=== PATIENT | male | born 1970 | race Two or more races ===

== ENCOUNTER 2024-10-22 11:32 | Inpatient (IN) | payer MEDICAID, SELFPAY ==
[2024-10-22] VITALS (10 sets, daily range): BP systolic 107–132; BP diastolic 69–94; PULSE 8–95; RESP 16–21; TEMP 36.6–37.6; O2SAT 95–100; BMI 25.5; BMI 25.2
--- NOTE | 2024-10-22 11:38 | EKG_ITS ---
[facility] Test Date: 2024-10-22 Pat Name: BRIAN SINGER Department: Room: - Gender: Male [employer]: : 1970 Requested By: Anushka Farias ([facility]) [place] Order Number: [id number] Reading MD: Anushka Farias ([facility]) Yeison Measurements Intervals [place] Rate: 91 P: 53 GA: 146 QRS: 43 QRSD: 82 T: 38 QT: 359 QTc: 442 Interpretive Statements SINUS RHYTHM NONSPECIFIC T-WAVE ABNORMALITY No previous ECG available for comparison /store/S0/[id number]/ecg/[id number].pdf
--- NOTE | 2024-10-22 11:47 | XR_ITS ---
Examination: CT brain head without contrast. 2-D sagittal coronal reconstructions Date and time of exam:October 22, 2024 1156 hours INDICATIONS: Syncopal episode with dizziness onset today CTDI: vol (mGy):46.9 DLP: (mGycm):964 Technique: Multiple CT axial sections of the brain have been obtained, 5 mm slice thickness. Contrast has not been administered. 2-D sagittal, coronal reconstructions have been obtained Low dose protocols were performed. One or more of the following dose reduction techniques were used; automated exposure control, adjustment of the mA and/or KV according to patient size, use of iterative reconstruction technique. Findings: No significant ventricular enlargement. Intra-axial or extra-axial hemorrhage density is not seen. No mass effect or midline shift Basal cisterns are not remarkable. Fourth ventricle is midline. Cranial vault intact. Impression: Negative for acute hemorrhage, mass effect or midline shift If symptoms persist, consider brain MRI follow-up
--- NOTE | 2024-10-22 11:47 | XR_ITS ---
Examination: PA chest single view TECHNIQUE: Upright PA chest single view Exam date and time: October 22, 2024 1159 hours INDICATIONS: Chest pain syncope beginning one day ago. FINDINGS: Normal heart size CABG No pneumonia or pulmonary edema. The osseous structures are intact IMPRESSION: No active disease
--- NOTE | 2024-10-22 11:48 | PD.EDRME ---
Rapid Medical Screening Exam RME Arrival date/time: 10/22/24 11:32 53-year-old male presents the emergency department with complaints of shortness of breath chest pain and dizziness. I have greeted and performed a focused initial assessment of this patient. Initial appropriate labs ordered at this time. A comprehensive ED assessment and evaluation of the patient and analysis of all test and completion of medical decision making process will be conducted by additional ED provider. Chief Complaint: Dizziness Time Seen by Provider: 10/22/24 11:47
[2024-10-22 12:31] LABS: Basophils # (Auto) 0.1 Thou/mm3 (0.0-0.2); Basophils % (Auto) 1 % (0-2.5); Eosinophils % (Auto) 0 % (0-10); Hematocrit 22.2 % (41.0-53.0); Immature Granulocytes % (Auto) 1 % (0-0); Immature Granulocytes Auto 0.07 Thou/mm3 (0.00-0.00); Lymphocytes # (Auto) 1.4 Thou/mm3 (1.0-4.8); Lymphocytes % (Auto) 12 % (10-50); Mean Corpuscular HGB Conc 33.3 g/dl (31.0-37.0); Mean Corpuscular Hemoglobin 29.5 pg (25.0-35.0); Mean Corpuscular Volume 88 fL (80-100); Monocytes # (Auto) 0.5 Thou/mm3 (0.0-0.8); Monocytes % (Auto) 4 % (0-12); Neutrophils # (Auto) 9.8 Thou/mm3 (1.8-7.7); Neutrophils % (Auto) 83 % (37-80); Nucleated Red Blood Cell % 0 /100 WBC (0); Platelet Count 252 Thou/mm3 (140-440); RDW Standard Deviation 54.9 fL (35.1-43.9); Red Blood Count 2.51 Miln/mm3 (4.50-5.90); White Blood Count 11.9 Thou/mm3 (3.8-10.6)
[2024-10-22 12:44] LABS: INR 1.1 (0.9-1.3); Prothrombin Time 11.8 Seconds (9.0-12.2)
[2024-10-22 12:47] LABS: B-Type Natriuretic Peptide < 20 pg/mL (0-100)
[2024-10-22 12:49] LABS: Alanine Aminotransferase 22 U/L (10-49); Albumin, Serum 4.1 gm/dL (3.5-5.0); Albumin/Globulin Ratio 2.1 (1.2-2.2); Alkaline Phosphatase 49 U/L (46-116); Anion Gap 8 (7-16); Aspartate Amino Transferase 18 U/L (0-34); BUN/Creatinine Ratio 41 Ratio (12-20); Bilirubin,Total 0.5 mg/dL (0.3-1.2); Blood Urea Nitrogen 37 mg/dL (9-23); Calcium 8.6 mg/dL (8.3-10.6); Calcium (Corrected) 8.6 mg/dL (8.5-10.1); Carbon Dioxide 19.9 mMol/L (20.0-31.0); Chloride 105 mMol/L (98-107); Creatinine (Component) 0.9 mg/dL (0.6-1.3); Estimated Creatinine Clearance 90.8 mL/min (>60); Glucose 190 mg/dL (74-106); Lipase 36 U/L (12-53); Magnesium 1.8 mg/dL (1.6-2.6); Osmolality,Calculated 280 (275-295); Potassium 4.4 mMol/L (3.4-5.1); Sodium 133 mMol/L (136-145); Total Protein 6.1 gm/dL (5.7-8.2); Troponin I < 0.020 ng/mL (0.0-0.045); eGFR > 60 See Note
[2024-10-22 12:50] LABS: Hemoglobin 7.4 g/dL (13.5-16.0)
--- NOTE | 2024-10-22 15:21 | EDNOTE_ITS ---
<Statement entered by Liv Perdomo MD - 10/28/24 17:56> As co-signing physician, I was present and available for consult prn. I concur with the plan and care as documented by the midlevel provider. ED Dizzyness RME/HPI General Chief Complaint: Dizziness Stated Complaint: Dizziness X 3 days, nausea Time Seen by Provider: 10/22/24 11:47 Arrival date/time: 10/22/24 11:32 RME / HPI RME / HPI Narrative: 53-year-old male patient with significant history of hypertension diabetes mellitus, CAD, status post CABG, on aspirin and Plavix, came in for evaluation regarding dizziness. Patient's been having dizziness for the last 3 days, and noticed black tarry stool for the last 3 days. Patient denies any abdominal pain. Denies any vomiting blood denies any other complaints no medication was taken prior to arrival. Related Data Allergies Allergy/AdvReac Type Severity Reaction Status Date / Time No Known Allergies Allergy Verified 10/22/24 11:37 Review of Systems Review of Systems Narrative Review of Systems: Review of system reviewed and within normal limits except mentioned in HPI ED Exam Narrative Physical exam: VITAL SIGNS: Reviewed. GENERAL APPEARANCE: Alert and interactive, follows commands, no acute distress, HEAD AND FACE: Non-traumatic. ENT: PERRL, pale conjunctiva, eyelid no trauma, Mucous membrane moist. NECK: Supple, nontender, no nuchal rigidity. CHEST: No tenderness, no crepitus, no paradoxical movement, no retractions. LUNGS: Clear, well ventilated, symmetric, no rales, no wheezing, no ronchi, no stridor, good breath sounds bilaterally. HEART: Regular rate, regular rhythm, no murmur, no gallops. ABDOMEN: Soft, positive bowel sounds, nondistended, no guarding, nontender, no rebound, no masses, RECTAL: Deferred. GENITAL: Deferred. NEUROLOGICAL: Gross motor function intact sensory function intact, Appropriate for age. MUSCULOSKELETAL: low back nontender, full range of motion. EXTREMITIES: Nontender, full range of motion. SKIN: Color pale, dry, no rash, no lacerations, no abrasions, no contusions. LYMPHATICS: Deferred. Course Quality Measures none Orders Category Date Time Status COVID-19 Screening Questionnaire NOW Care 10/22/24 15:27 Active Personal Vehicle Advisor STAT Care 10/22/24 11:47 Active Continuous Pulse Oximetry ONCE Care 10/22/24 11:47 Active Decision to Admit X1 Care 10/22/24 15:27 Completed EKG (ED ONLY) *Do not use* NOW Care 10/22/24 11:38 Completed Insert IV STAT Care 10/22/24 11:47 Active Occult Blood,Stool (Nursing) ONCE Care 10/22/24 15:17 Active Transfuse,blood/blood products ONCE Care 10/22/24 15:17 Active Consult to Gastroenterology Stat Cons 10/22/24 15:[address] head/brain wo con Stat Exams 10/22/24 11:47 Completed EKG (ED Only) Stat Exams 10/22/24 11:38 Draft XR chest 1V portable Stat Exams 10/22/24 11:47 Completed B-Type Natriuretic Peptide Stat Lab 10/22/24 12:11 Completed CBC Stat Lab 10/22/24 12:11 Completed Comprehensive Metabolic Panel Stat Lab 10/22/24 12:11 Completed Lipase Stat Lab 10/22/24 12:11 Completed Magnesium Stat Lab 10/22/24 12:11 Completed Prothrombin Time with INR Stat Lab 10/22/24 12:11 Completed Troponin I Stat Lab 10/22/24 12:11 Completed Type and Screen Stat Lab 10/22/24 15:46 Results prbc [Red Blood Cells] Stat Lab 10/22/24 15:46 Results Pantoprazole Inj [Protonix Inj] Med 10/22/24 15:17 Discontinued 80 mg IV X1 ONE Vital Signs Vital signs: Vital Signs Temperature 98.0 F 10/22/24 11:51 Pulse Rate 95 10/22/24 11:51 Respiratory Rate 19 10/22/24 11:51 Blood Pressure 107/69 10/22/24 11:51 Pulse Oximetry (%) 95 10/22/24 11:51 Oxygen Delivery Method Room Air 10/22/24 11:51 Dizziness MDM Narrative MDM Narrative:: 53-year-old male patient with significant history of hypertension diabetes mellitus, CAD, status post CABG, on aspirin and Plavix, came in for evaluation regarding dizziness. Patient's been having dizziness for the last 3 days, and noticed black tarry stool for the last 3 days. Patient denies any abdominal pain. Denies any vomiting blood denies any other complaints no medication was taken prior to arrival. Rectal exam was done by me with the around all the time and with consent, I noticed black tarry stool on the examining finger, strongly positive for occult blood Patient's hemoglobin was noted to be 7.4, 2 units of packed RBC was ordered, patient was started on Protonix IV. Patient data External records reviewed:: None Clinical information provided by:: family Social determinants that could affect healthcare access:: none Patient has the following chronic illnesses:: Hypertension diabetes mellitus, status post open heart surgery, CAD, How is presenting disease/condition affected by chronic disease/condition?: exacerbated by Evaluation data The following diagnostics were reviewed and interpreted by me:: lab results, radiology exam(s) and EKG tracing(s) Lab and/or radiology exams considered but not ordered:: None Interpretation Summary: EKG as interpreted by me shows sinus rhythm, ventricular rate of 91 bpm, no ST segment elevation depression noted. Patient's hemoglobin today was noted to be 7.4, platelets is normal. CT scan of the head came back unremarkable. Chest x- ray came back unremarkable. Medications / Prescriptions Medications or Prescriptions considered but not ordered:: None Medication administrations:: Medication Administration History Acetaminophen (Acetaminophen 325 Mg Tablet) 650 mg PO Q6H PRN PRN Reason: Pain RATED 1-3,Fever >100.4 Stop: 11/21/24 16:20 Hydrocodone Bitart/Acetaminophen (Hydrocodone/Apap 5/325 Tablet) 1 tab PO Q4HR PRN PRN Reason: PAIN SCALE 4-10(Mod-Sev Stop: 10/27/24 16:20 Atorvastatin Calcium (Atorvastatin Calcium 20 Mg Tablet) 40 mg PO HS MIKAELA Stop: 11/21/24 20:59 Dextrose (Dextrose 50%-Water Inj 50 Ml Syringe) 25 ml IV Q15MIN PRN PRN Reason: BG 50-70 responsive npo pt Stop: 11/21/24 16:20 Dextrose (Dextrose 50%-Water Inj 50 Ml Syringe) 50 ml IV Q15MIN PRN PRN Reason: BG <50 OR BG <70 & pt unresponsive Stop: 11/21/24 16:20 Glucagon (Glucagon Inj 1 Mg Vial) 1 mg IM Q15MIN PRN PRN Reason: BG <70, and no IV access Pantoprazole Sodium (Protonix/Ns 80mg Iv Premix) 80 mg in 100 mls @ 10 mls/hr IV Q10H MIKAELA Stop: 10/25/24 14:25 Last Admin: 10/22/24 17:03 Dose: 10 mls/hr Documented By: JADE Insulin Human Lispro (Insulin Lispro (Admelog) 1 Unit/0.01 Ml Unit) 0 unit SC [facility]; Protocol Stop: 11/21/24 16:59 Last Admin: 10/22/24 17:07 Dose: Not Given Documented By: JADE Non-Admin Reason: Patient Refused Ondansetron HCl (Ondansetron Inj 2 Mg/Ml Inj 2 Ml) 4 mg IV Q6H PRN; Protocol PRN Reason: NAUSEA OR VOMITING Stop: 11/21/24 16:20 Discontinued Medications Carvedilol (Carvedilol 3.125 Mg Tablet) 6.25 mg PO BIDWM [facility] Stop: 11/21/24 17:29 Pantoprazole Sodium (Pantoprazole Inj 40 Mg Vial) 80 mg IV X1 ONE Stop: 10/22/24 15:18 Last Admin: 10/22/24 15:52 Dose: 80 mg Documented By: JADE Protonix IV, 2 units packed RBC Consultations Consultation(s) initiated? (list below): Yes Consultation #1 (Physician, Specialty, Details): Spoke with Dr. Casas, GI on-call, and thank you Dr. Casas Diagnosis Dizziness Differential Diagnosis: other (Upper GI bleed, anemia, dizziness) Most likely diagnosis given after review of the tests above:: Upper GI bleed Anemia Admission Indicated Admission indicated?: indicated Explain why admission is indicated or not indicated:: Patient is to be admitted for further management Admission Request Was there a request for admission?: Yes Admission Attestation Admission request attestation: Discussed case with [Dr Rice] from Hospitalist service regarding admission. Discussed patients ED course, exam findings, labs, and radiology results. The Hospitalist [agrees] to accept the patient for admission. Disposition Plan Disposition Plan: Admit Discharge Plan Plan Patient Disposition: Admit Acute Care w/in Hospital Disposition Comment: Stable Problem List Clinical Impression: Acute upper gastrointestinal bleeding, Anemia, Diabetes mellitus, CAD (coronary artery disease), HTN (hypertension)
[2024-10-22] MEDS: PANTOPRAZOLE INJ 40 MG VIAL 80 MG IV (15:52)
--- NOTE | 2024-10-22 16:31 | ESHP_ITS ---
Documentation for date of: 10/22/24 [facility] History of Present Illness Chief complaint: Dizziness and black stools History of present illness: 53-year-old male patient with past medical history of CAD s/p CABG (May 2023), hypertension, NIDDM, and hyperlipidemia was admitted to the hospital on 10/22/2024 after coming to the ED with complaints of dizziness and black starry stools. On assessment patient stated that around 2 or 3 days ago he started having feelings of dizziness when he was walking and that yesterday he passed out. He stated that when he passed out he started sweating and feeling dizzy, but denied any chest pain, loss of conscious, or palpitations during this time. Patient stated that he also had nausea and had an episode of diarrhea on that same day that he passed out and that his diarrhea was very dark. He mentioned that he had priorly had an episode of black starry stools around 3 months ago, but that these self resolved and he did not seek further medical advice. Patient also stated that he was recently switched from Tradjenta to Synjardy day for start using his Synjardy on Saturday. He stated that since he started using this medication he knows that he got dizzy on Saturday on the day after, but stated that his sugars have not been below 100 and that have some been quite elevated to the 180s to 200s. Patient has never had a colonoscopy before or a EGD before and stated that he does not have any family history of colon cancer or any history of bleeding per rectum or vomiting blood in the past. Initially patient came in afebrile and normotensive. Initial labs were relevant for leukocytosis (11.9), anemia (Hgb 7.4), and metabolic acidosis (bicarb 19.9). Initial imaging included chest x-ray which was unremarkable, head CT which was unremarkable, and EKG which showed sinus rhythm with no acute ST changes. In ED patient received 1 dose of Protonix 80 mg IV. PMH: As above FMH: No relevant family history for any colon cancer Surgical Hx: Bilateral cataract, CABG Social Hx: Denies any alcohol, smoking, or drugs Review of Systems Review of Systems Narrative Review of Systems: Constitutional: Admits sweats, Denies weight loss/gain, Denies fever, Denies chills. HEENT: Denies hearing loss, Denies ear pain, Denies postnasal drip, Denies double vision, Denies blurry vision. Respiratory: Denies shortness of breath, Denies cough, Denies wheezing. Cardiovascular: Denies chest pain, Admits palpitations, Denies sudden loss of consciousness. GI: Admits blood in stool, Denies constipation, Denies abdominal pain, Denies difficulty swallowing, Admits nausea, denies vomit. : Denies urinary incontinence, Denies pain while urinating, Denies increased urinary frequency. MSK: Denies joint pain, Denies joint swelling, Denies numbness. Skin: Denies rash, Denies itching, Denies easy bruising. Neuro: Denies headaches, Admits dizziness, Denies seizures. Exam Vital Signs Temp Pulse Resp BP Pulse Ox O2 Del Method 98.7 F 83 18 121/78 100 Room Air 10/22/24 16:24 10/22/24 16:24 10/22/24 16:24 10/22/24 16:24 10/22/24 16:24 10/22/24 16:24 Narrative Exam General: A/O x3, no acute distress, well-nourished, well-developed Eyes: PERRL, EOMI. Anicteric, vision grossly intact. Ears: No ear pain, no ear discharge, Hearing grossly intact. Nose: No nasal discharge. Mouth/Throat: Dry mucous membranes, no redness, no lesions. Neck: Neck supple, non-tender, no cervical lymphadenopathy. Lungs: Clear ERIC to auscultation and percussion, No accessory muscle use. Cardio: Normal S1/S2, regular rhythm, no murmurs, no JVD Abdomen: Soft, non-tender, no palpable masses, peristalsis present, no guarding or rebound. Extremities: Symmetrical, no significant deformities, no peripheral edema , non-tender, peripheral pulses presents. Skin: No rashes, no lesions, warm to touch. Neuro: No focal neurological deficits. motor and sensory intact. Psych: Cooperative, appropriate mood and effect. Results: Labs 10/23/24 05:20 10/23/24 05:20 Labs: Short CBC 10/22/24 Range/Units 12:11 WBC 11.9 H (3.8-10.6) Thou/mm3 Hgb 7.4 L (13.5-16.0) g/dL Hct 22.2 L (41.0-53.0) % Plt Count 252 (140-440) Thou/mm3 BMP 10/22/24 12:11 Sodium 133 L Potassium 4.4 Chloride 105 Carbon Dioxide 19.9 L BUN 37 H Creatinine 0.9 Glucose 190 H Calcium 8.6 Cardiac Enzymes 10/22/24 Range/Units 12:11 Troponin I < 0.020 (0.0-0.045) ng/mL Liver Function 10/22/24 Range/Units 12:11 Total Bilirubin 0.5 (0.3-1.2) mg/dL AST 18 (0-34) U/L ALT 22 (10-49) U/L Alkaline Phosphatase 49 (46-116) U/L Albumin 4.1 (3.5-5.0) gm/dL Quality Measures Quality Measures VTE prophylaxis (SCDs) Medications Home Medications and Allergies Home Medications ?Medication ?Instructions ?Recorded ?Confirmed ?Type aspirin 81 mg tablet,delayed 81 mg PO HS 10/22/24 10/22/24 History release atorvastatin 40 mg tablet 40 mg PO HS 10/22/24 10/22/24 History carvedilol 6.25 mg tablet 6.25 mg PO DAILY 10/22/24 10/22/24 History clopidogrel 75 mg tablet 75 mg PO DAILY 10/22/24 10/22/24 History empagliflozin 12.5 mg-metformin ER 1 tab PO DAILY 10/22/24 10/22/24 History 1,000 mg tablet,extended rel 24 hr (Synjardy XR) Allergies Allergy/AdvReac Type Severity Reaction Status Date / Time No Known Allergies Allergy Verified 10/22/24 22:01 Visit Medications Acetaminophen (Acetaminophen 325 Mg Tablet) 650 mg PO Q6H PRN PRN Reason: Pain RATED 1-3,Fever >100.4 Stop: 11/21/24 16:20 Hydrocodone Bitart/Acetaminophen (Hydrocodone/Apap 5/325 Tablet) 1 tab PO Q4HR PRN PRN Reason: PAIN SCALE 4-10(Mod-Sev Stop: 10/27/24 16:20 Dextrose (Dextrose 50%-Water Inj 50 Ml Syringe) 25 ml IV Q15MIN PRN PRN Reason: BG 50-70 responsive npo pt Stop: 11/21/24 16:20 Dextrose (Dextrose 50%-Water Inj 50 Ml Syringe) 50 ml IV Q15MIN PRN PRN Reason: BG <50 OR BG <70 & pt unresponsive Stop: 11/21/24 16:20 Glucagon (Glucagon Inj 1 Mg Vial) 1 mg IM Q15MIN PRN PRN Reason: BG <70, and no IV access Pantoprazole Sodium (Protonix/Ns 80mg Iv Premix) 80 mg in 100 mls @ 10 mls/hr IV Q10H MIKAELA Stop: 10/25/24 14:25 Insulin Human Lispro (Insulin Lispro (Admelog) 1 Unit/0.01 Ml Unit) 0 unit SC ACHS MIKAELA; Protocol Stop: 11/21/24 16:59 Ondansetron HCl (Ondansetron Inj 2 Mg/Ml Inj 2 Ml) 4 mg IV Q6H PRN; Protocol PRN Reason: NAUSEA OR VOMITING Stop: 11/21/24 16:20 Discontinued Medications Pantoprazole Sodium (Pantoprazole Inj 40 Mg Vial) 80 mg IV X1 ONE Stop: 10/22/24 15:18 Last Admin: 10/22/24 15:52 Dose: 80 mg Assessment & Plan Plan 53-year-old male patient with past medical history of CAD s/p CABG (May 2023), hypertension, NIDDM, and hyperlipidemia was admitted to the hospital on 10/22/2024 for acute blood loss anemia likely in the setting of upper GI bleed versus lower GI bleed. #Acute blood loss anemia #GI bleed, upper versus lower #Presyncope #Diarrhea ?Patient came in with complaints of black tarry stools and dizziness for the past 2 or 3 days with an episode of diarrhea and presyncope ?Patient's hemoglobin was 7.4 on admission ?DDx most likely upper GI bleed in the setting of black tarry stools versus lower GI bleed ?Patient Protonix 80 mg IV x 1 in the ED Plan: ?Protonix drip ? Clear liquid diet ? N.p.o. after midnight ?Possible EGD in the morning ?Bleeding precautions ? Consulted GI, appreciate recommendations #Non-anion gap metabolic acidosis ? Bicarb 19.9 and anion gap 8 on admission ? Most likely in the setting of diarrhea Plan: ? Will continue to monitor #Leukocytosis ? WBC 11.9 ? Likely reactive Plan: ? Will continue to monitor #Pseudohyponatremia ? Patient sodium 133 corrected sodium 135 Plan: ? Will continue to monitor #NIDDM ? Initial blood glucose was 190 on admission ? No A1c on file ? Patient takes Synjardy at home, was switched from Tradjenta recently Plan: ? A1c ordered for a.m. draw ? ISS ? Accu-Cheks and hypoglycemia protocol ? Will continue to monitor #CAD s/p CABG (May 2023) #HTN #Hyperlipidemia ? Patient had an OR in June 14, 2023 and had CABG done at [place] ? 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 Ordered lipid panel for a.m. draw ? Will hold aspirin and Plavix in the setting of GI bleed -Will hold antihypertensive for now ?Will continue patient's atorvastatin Disposition: Patient admitted to telemetry, clear liquid diet and NPO at midnight for possible procedure. Diet: Clear liquid diet, NPO at midnight GI prophylaxis: protonix DVT prophylaxis: SCDs Code: Full Case disclosed with Attending Dr. Schumacher and My senior Dr. Sullivan PGY2. Aneesh Nguyen PGY1 L Mr Dominguez is a 53-year-old male patient with past medical history of CAD s/p CABG (May 2023), hypertension, NIDDM, and hyperlipidemia was admitted to the hospital on 10/22/2024 for acute lower GI bleed, per rectum. Patient underwent CABG in 2022, and was started on aspirin and Plavix. He never had any GI bleeding prior to this episode. Per at bedside, patient has been having recurrent episodes of dizziness, weakness and presyncopal episodes over the last 1 month. Patient described this episode of bleeding as delfino blood after his bowel movement, no mucus or diarrhea, no nausea or vomiting. GI Paul consulted, as per recommendations patient started on IV Protonix drip, clear liquid diet, n.p.o. after midnight for possible EGD and if needed followed by colonoscopy. We will hold aspirin and Plavix in the setting of acute GI bleed, until further recommendations. Patient examined and case discussed with the team including attending physician. Note reviewed, I agree with the care plan as documented. - Bruno Sullivan MD, PGY 2 Attending Provider Attestation/Addendum I have discussed and was present for the essential components of the history, physical examination, diagnosis, and treatment plan with the resident. I agree with the patient's care as documented by the resident and amended herein by me. Gabriele Schumacher DO. Although this document has been carefully reviewed, there may still be some phonetic and other typographical errors. These errors are purely grammatical due to imperfections in the software program and should not be construed in any way to compromise the substance of the patient's medical care during this visit.
[2024-10-22] MEDS: PANTOPRAZOLE/NS 80MG IV PREMIX 80 MG/100 ML BAG 10 MG IV (17:03)
--- NOTE | 2024-10-22 17:07 | PD.IMCONS ---
HPI Data of Consult Requesting Physician: Shaquille Schumacher DO Primary Care Provider: Tyrell Morrell Consult Narrative Reason for consult: Melena H/H 7.4/22.2 History of present illness: 53 years male presented to the hospital with dizziness and melanotic stool for 3 days Presenting hemoglobin hematocrit 7.4 and 22.2 with a platelet count of 252,000 and pro time INR 1.1 Patient does not drink any alcohol He does have a history of coronary artery status post CABG and on aspirin and Plavix CT scan of the head was negative for any acute hemorrhage CVA TIAs Patient does have a history of coronary artery status post CABG diabetes mellitus type 2 essential hypertension cc:: cc: Shaquille Schumacher DO Review of Systems Review of Systems Systems Reviewed: All systems reviewed, normal except as documented Past Medical History Surgical History OTHER SURGICAL HX: As in the history of present illness Meds Home Medications and Allergies Allergies Allergy/AdvReac Type Severity Reaction Status Date / Time No Known Allergies Allergy Verified 10/22/24 11:37 Exam Vital Signs Temp Pulse Resp BP Pulse Ox O2 Del Method 98.7 F 83 18 121/78 100 Room Air 10/22/24 16:24 10/22/24 16:24 10/22/24 16:24 10/22/24 16:24 10/22/24 16:24 10/22/24 16:24 Routine Respiratory Exam Comments: Normal to auscultation Routine Abdominal Exam Comments: Soft nontender Results Labs 10/22/24 12:11 10/22/24 12:11 Labs: Short CBC 10/22/24 Range/Units 12:11 WBC 11.9 H (3.8-10.6) Thou/mm3 Hgb 7.4 L (13.5-16.0) g/dL Hct 22.2 L (41.0-53.0) % Plt Count 252 (140-440) Thou/mm3 BMP 10/22/24 12:11 Sodium 133 L Potassium 4.4 Chloride 105 Carbon Dioxide 19.9 L BUN 37 H Creatinine 0.9 Glucose 190 H Calcium 8.6 Cardiac Enzymes 10/22/24 Range/Units 12:11 Troponin I < 0.020 (0.0-0.045) ng/mL Liver Function 10/22/24 Range/Units 12:11 Total Bilirubin 0.5 (0.3-1.2) mg/dL AST 18 (0-34) U/L ALT 22 (10-49) U/L Alkaline Phosphatase 49 (46-116) U/L Albumin 4.1 (3.5-5.0) gm/dL Assessment and Plan Additional Assessment & Plan Additional Plan: # Acute posthemorrhagic anemia # Melena Plan Clear liquid diet N.p.o. midnight tonight IV Protonix Serial CBC Consent obtained for fiberoptic esophagogastroduodenoscopy with possible therapeutic intervention possible biopsy under intravenous moderate sedation scheduled for tomorrow Other medical problems include # Coronary artery status post CABG on aspirin and Plavix # Diabetes mellitus type 2 # Essential hypertension # Dizziness secondary to acute blood losses with a negative CT scan of the head Thank you very much for the opportunity to participate in the care of this patient
--- NOTE | 2024-10-22 17:40 | PC.CC ---
Patient is a 53 year-old male who presents to the hospital for GI Bleed. Amena KIDD made arun-uo-dpak contact with patient. ASW introduced self, role, and reason for visit. Patient appeared alert and oriented to self, location, and situation. At bedside was patient's significant other, Jumana Chandler whom the patient provided consent to remain in the room during initial assessment. Patient was pleasant and engaged in initial assessment. Patient confirmed information on demographics and reports to living at home with his significant other. At home the patient ambulated independently and is able to complete his own ADLs without any assistance. Patient does not use any DME. For primary care patient is seen by Tyrell Camacho and for prescription medication he uses [facility]. Patient reports his next of Kin is his significant other Jumana Chandler. Upon discharge the patient plans to return home with the support of his significant other. shared services manager to follow-up with any discharge needs.
--- NOTE | 2024-10-22 21:50 | PC.NURSE ---
first unit of blood in progress. Pt tolerating well. Report was called to M/S RN
[2024-10-22] MEDS: ATORVASTATIN CALCIUM 20 MG TABLET 40 MG PO (22:11)
[2024-10-23] VITALS (21 sets, daily range): BP systolic 124–162; BP diastolic 76–97; PULSE 61–91; RESP 12–98; TEMP 36.1–37.1; O2SAT 97–100; BMI 25.2
[2024-10-23] MEDS: PANTOPRAZOLE/NS 80MG IV PREMIX 80 MG/100 ML BAG 10 MG IV ×2 (02:02→13:03)
[2024-10-23 06:58] LABS: Anion Gap 7 (7-16); BUN/Creatinine Ratio 22 Ratio (12-20); Blood Urea Nitrogen 22 mg/dL (9-23); Calcium 8.6 mg/dL (8.3-10.6); Carbon Dioxide 23.5 mMol/L (20.0-31.0); Cardiac Risk Estimate 3.4 RATIO (4.0-6.7); Chloride 107 mMol/L (98-107); Cholesterol 89 mg/dL (132-200); Estimated Creatinine Clearance 81.7 mL/min (>60); Glucose 140 mg/dL (74-106); HDL Cholesterol 26 mg/dL (40-60); LDL Cholesterol,Calculated 33 mg/dL (0-130); Magnesium 1.9 mg/dL (1.6-2.6); Osmolality,Calculated 279 (275-295); Phosphorous 2.6 mg/dL (2.4-5.1); Potassium 4.2 mMol/L (3.4-5.1); Sodium 137 mMol/L (136-145); Thyroid Stimulating Hormone 3.26 uIU/mL (0.55-4.78); Triglycerides 150 mg/dL (30-150); eGFR > 60 See Note
[2024-10-23 07:21] LABS: Basophils # (Auto) 0.1 Thou/mm3 (0.0-0.2); Basophils % (Auto) 1 % (0-2.5); Eosinophils # (Auto) 0.1 Thou/mm3 (0.0-0.5); Eosinophils % (Auto) 1 % (0-10); Hematocrit 26.3 % (41.0-53.0); Immature Granulocytes % (Auto) 1 % (0-0); Immature Granulocytes Auto 0.06 Thou/mm3 (0.00-0.00); Lymphocytes % (Auto) 19 % (10-50); Mean Corpuscular HGB Conc 33.5 g/dl (31.0-37.0); Mean Corpuscular Hemoglobin 28.8 pg (25.0-35.0); Mean Corpuscular Volume 86 fL (80-100); Monocytes # (Auto) 1.1 Thou/mm3 (0.0-0.8); Monocytes % (Auto) 11 % (0-12); Neutrophils % (Auto) 68 % (37-80); Nucleated Red Blood Cell % 0 /100 WBC (0); Platelet Count 201 Thou/mm3 (140-440); RDW Standard Deviation 54.9 fL (35.1-43.9); Red Blood Count 3.06 Miln/mm3 (4.50-5.90); White Blood Count 10.3 Thou/mm3 (3.8-10.6)
[2024-10-23 07:37] LABS: Hemoglobin 8.8 g/dL (13.5-16.0)
[2024-10-23 08:05] LABS: Glucose Estimated Average 126 mg/dL (80-131)
--- NOTE | 2024-10-23 10:06 | ESPR_ITS ---
Documentation for date of: 10/23/24 Subjective Subjective Interval history: Patient seen and examined at bedside this morning. Vitals, labs reviewed. Hemoglobin improved to 8.8 patient is n.p.o. pending EGD. He denies any abdominal pain or further/hematochezia. Will follow-up with GI after EGD for recommendations on when to resume aspirin, Plavix. Exam Vital Signs Temp Pulse Resp BP Pulse Ox O2 Del Method O2 Flow Rate 97.5 F 73 17 131/88 H 98 Room Air 0 10/23/24 08:00 10/23/24 08:00 10/23/24 08:00 10/23/24 08:00 10/23/24 08:00 10/23/24 08:00 10/23/24 03:35 Narrative Exam Gen: AAOx3, resting comfortably, pleasant to speak with HEENT: MMM, no LAD CVS: normal S1, S2. RRR. No MRG Resp: CTA B/L. No rhonchi, rales, crackles or wheezing Abd: soft, non-tender, non-distended. BS+ in all 4 quadrants MSK: Good ROM in BUE & BLE. No edema or rash. Neuro: CN II-XII grossly intact. Strength 5/5 in BUE & BLE. Objective Labs 10/23/24 05:20 10/23/24 05:20 Labs: Laboratory Results - last 24 hr 10/22/24 10/22/24 10/23/24 12:11 15:46 05:20 WBC 11.9 H 10.3 RBC 2.51 L 3.06 L Hgb 7.4 L 8.8 L Hct 22.2 L 26.3 L MCV 88 86 MCH 29.5 28.8 MCHC 33.3 33.5 RDW Std Deviation 54.9 H 54.9 H Plt Count 252 201 D Neut % (Auto) 83 H 68 Lymph % (Auto) 12 19 [place] % (Auto) 4 11 Eos % (Auto) 0 1 Baso % (Auto) 1 1 Neut # (Auto) 9.8 H 7.0 Lymph # (Auto) 1.4 2.0 [place] # (Auto) 0.5 1.1 H Eos # (Auto) 0.0 0.1 Baso # (Auto) 0.1 0.1 Immature Gran # (Auto) 0.07 H 0.06 H Absolute Nucleated RBC 0.00 0.00 Immature Gran % 1 H 1 H Nucleated RBC % 0 0 PT 11.8 INR 1.1 Sodium 133 L 137 Potassium 4.4 4.2 Chloride 105 107 Carbon Dioxide 19.9 L 23.5 Anion Gap 8 7 BUN 37 H 22 Creatinine 0.9 1.0 Estim Creat Clear Calc 90.8 81.7 eGFR > 60 > 60 BUN/Creatinine Ratio 41 H 22 H Glucose [address] Glu mg/dL 126 Hemoglobin A1c 6.0 Calculated Osmolality 280 279 Calcium 8.6 8.6 Corrected Calcium 8.6 Phosphorus 2.6 Magnesium 1.8 1.9 Total Bilirubin 0.5 AST 18 ALT 22 Alkaline Phosphatase 49 Troponin I < 0.020 B-Natriuretic Peptide < 20 Total Protein 6.1 Albumin 4.1 Globulin 2.0 L Albumin/Globulin Ratio 2.1 Triglycerides 150 Cholesterol 89 L LDL Cholesterol, Calc 33 HDL Cholesterol 26 L Cholesterol/HDL Ratio 3.4 L Lipase 36 TSH 3.26 Blood Type A Positive Antibody Screen NEGATIVE Crossmatch See Detail Blood Bank Wristband ID Yes Quality Measures Quality Measures VTE prophylaxis (SCDs) Assessment & Plan Assessment Current Active Medications: Generic Name Dose Route Start Last Admin Trade Name Freq PRN Reason Stop Dose Admin Acetaminophen 650 mg 10/22/24 16:21 Acetaminophen 325 Mg Tablet PO 11/21/24 16:20 Q6H PRN Pain RATED 1-3,Fever >100.4 Hydrocodone Bitart/Acetaminophen 1 tab 10/22/24 16:21 Hydrocodone/Apap 5/325 Tablet PO 10/27/24 16:20 Q4HR PRN PAIN SCALE 4-10(Mod-Sev Atorvastatin Calcium 40 mg 10/22/24 21:00 10/22/24 22:11 Atorvastatin Calcium 20 Mg Tablet PO 11/21/24 20:59 40 mg HS MIKAELA Administration Dextrose 25 ml 10/22/24 16:21 Dextrose 50%-Water Inj 50 Ml Syringe IV 11/21/24 16:20 Q15MIN PRN BG 50-70 responsive npo pt Dextrose 50 ml 10/22/24 16:21 Dextrose 50%-Water Inj 50 Ml Syringe IV 11/21/24 16:20 Q15MIN PRN BG <50 OR BG <70 & pt unresponsive Glucagon 1 mg 10/22/24 16:21 Glucagon Inj 1 Mg Vial IM Q15MIN PRN BG <70, and no IV access Pantoprazole Sodium 80 mg in 100 mls @ 10 mls/hr 10/22/24 16:26 10/23/24 02:02 Protonix/Ns 80mg Iv Premix IV 10/25/24 14:25 10 mls/hr Q10H MIKAELA Administration Insulin Human Lispro 0 unit 10/22/24 17:00 10/22/24 22:16 Insulin Lispro (Admelog) 1 Unit/0.01 Ml Unit SC 11/21/24 16:59 Not Given ACHS MIKAELA Protocol Ondansetron HCl 4 mg 10/22/24 16:21 Ondansetron Inj 2 Mg/Ml Inj 2 Ml IV 11/21/24 16:20 Q6H PRN NAUSEA OR VOMITING Protocol Plan Patient is a 53-year-old male with history of CAD s/p CABG in May 2023 on aspirin/Plavix, HTN, NIDDM, HLD who was admitted on 10/22/2024 for acute blood loss anemia secondary to GI bleed, with patient endorsing melena and hematochezia. He was started on IV Protonix and clear liquid diet. GI was consulted, with plan for EGD on 10/23. #Acute blood loss anemia #GI bleed, upper versus lower #Hematochezia #Melena #Presyncope #Diarrhea, improved Patient endorsed dizziness, melena, and hematochezia; with hemoglobin 7.4 on admission. Patient is on aspirin and Plavix for CABG, which were held. GI consulted, appreciate recs: Continue Protonix, EGD scheduled for 10/23, monitor H&H Hemoglobin improved to 8.8. Will obtain type and screen & transfuse if hemoglobin <7 Will follow-up after EGD and restart diet as per GI recs Will discuss on when to resume aspirin, Plavix with GI #Non-anion gap metabolic acidosis, resolved Bicarb 19.9 and anion gap 8 on admission => 10/23: CO2 23.5 Most likely in the setting of diarrhea Will continue to monitor #Leukocytosis, resolved WBC 11.9 on admission => 10.3 Likely reactive Will continue to monitor #Pseudohyponatremia, resolved Patient sodium 133 corrected sodium 135 ==> 10/23: 137 Will continue to monitor #NIDDM A1c 6.0 Fasting BG 140; goal inpatient 140-180 On SSI; hypoglycemic protocol; bedside blood glucose every 6 hours while NPO, will change to ACHS when started on diet #CAD s/p CABG (May 2023) #HTN #Hyperlipidemia Patient with history of CT, CAD s/p CABG with cardiology in [place] (May 2023). Patient has been taking aspirin, Plavix, currently held due to GI bleed Lipid panel significant for low HDL 26. LDL 33, total cholesterol 89 => will continue statin BP has been stable, holding antihypertensives at this time. Will continue to monitor vital signs Disposition: Patient admitted to telemetry, pending EGD today Diet: N.p.o. => will need to resume diet after EGD GI prophylaxis: protonix DVT prophylaxis: SCDs CODE STATUS: Full code Patient seen and care discussed with my attending Dr. Schumacher. Geraldine Mcdaniel MD PGY-3 Attending Provider Attestation/Addendum I have discussed and was present for the essential components of the history, physical examination, diagnosis, and treatment plan with the resident. I agree with the patient's care as documented by the resident and amended herein by me. Gabriele Schumacher, . Patient seen and evaluated this AM. Vital signs stable, patient afebrile overnight. No subjective complaints in the AM. Hemoglobin 8.8 this morning. EGD pending later today, patient will remain on Protonix drip and is n.p.o. Aspirin, Plavix and Coreg have been held. Gastroenterology consulted for suspected GI bleed, appreciate recommendations Although this document has been carefully reviewed, there may still be some phonetic and other typographical errors. These errors are purely grammatical due to imperfections in the software program and should not be construed in any way to compromise the substance of the patient's medical care during this visit.
--- NOTE | 2024-10-23 17:56 | SUR.PHASEI ---
Pt. arrived to recovery via gurney, eyes closed, responds to verbal commands, VSS, no c/o pain or nausea at this time, IV flusahed and patent, received report from Bailee QUINONES.
--- NOTE | 2024-10-23 18:20 | SUR.PHASEI ---
Called and gave report on pt. s/p procedure to Chari QUINONES on M/S unit.
--- NOTE | 2024-10-23 18:24 | SUR.PHASEI ---
Pt. transferred to room 365 via BEATRIZ anne, no c/o pain or nausea at this time, IV flushed and Chari patton RN assumed care of pt.
[2024-10-23] MEDS: INSULIN LISPRO (AdmeLOG) 1 UNIT/0.01 ML UNIT SC (20:08)
[2024-10-23] MEDS: MG HYD/AL HYD/SIME (Maalox Reg) SUSP 30 ML UDC 15 ML PO (20:08)
[2024-10-23] MEDS: ATORVASTATIN CALCIUM 20 MG TABLET 40 MG PO (20:09)
[2024-10-23] MEDS: SUCRALFATE SUSP 1 GM/10 ML UDC PO (20:09)
[2024-10-24] VITALS: BP 126/72; PULSE 68; RESP 18; TEMP 37.1; O2SAT 98
[2024-10-24] MEDS: MG HYD/AL HYD/SIME (Maalox Reg) SUSP 30 ML UDC 15 ML PO ×4 (01:07→14:44)
[2024-10-24] MEDS: PANTOPRAZOLE/NS 80MG IV PREMIX 80 MG/100 ML BAG 10 MG IV ×2 (01:08→14:46)
[2024-10-24 04:00] VITALS: BP 122/70; PULSE 85; RESP 17; TEMP 37.2; O2SAT 98
[2024-10-24] MEDS: SUCRALFATE SUSP 1 GM/10 ML UDC PO ×3 (05:32→17:36)
[2024-10-24 05:52] LABS: Basophils # (Auto) 0.1 Thou/mm3 (0.0-0.2); Basophils % (Auto) 1 % (0-2.5); Eosinophils # (Auto) 0.1 Thou/mm3 (0.0-0.5); Eosinophils % (Auto) 2 % (0-10); Hematocrit 24.9 % (41.0-53.0); Immature Granulocytes % (Auto) 0 % (0-0); Immature Granulocytes Auto 0.01 Thou/mm3 (0.00-0.00); Lymphocytes # (Auto) 1.4 Thou/mm3 (1.0-4.8); Lymphocytes % (Auto) 22 % (10-50); Mean Corpuscular HGB Conc 33.7 g/dl (31.0-37.0); Mean Corpuscular Hemoglobin 29.4 pg (25.0-35.0); Mean Corpuscular Volume 87 fL (80-100); Monocytes # (Auto) 0.7 Thou/mm3 (0.0-0.8); Monocytes % (Auto) 11 % (0-12); Neutrophils # (Auto) 4.1 Thou/mm3 (1.8-7.7); Neutrophils % (Auto) 64 % (37-80); Nucleated Red Blood Cell # 0.02 Thou/mm3 (0.00-0.00); Nucleated Red Blood Cell % 0 /100 WBC (0); Platelet Count 156 Thou/mm3 (140-440); RDW Standard Deviation 55.8 fL (35.1-43.9); Red Blood Count 2.86 Miln/mm3 (4.50-5.90); White Blood Count 6.4 Thou/mm3 (3.8-10.6)
[2024-10-24 05:56] LABS: Hemoglobin 8.4 g/dL (13.5-16.0)
[2024-10-24 06:12] LABS: Anion Gap 5 (7-16); BUN/Creatinine Ratio 14 Ratio (12-20); Blood Urea Nitrogen 14 mg/dL (9-23); Calcium 8.7 mg/dL (8.3-10.6); Carbon Dioxide 27.4 mMol/L (20.0-31.0); Chloride 107 mMol/L (98-107); Estimated Creatinine Clearance 81.7 mL/min (>60); Glucose 110 mg/dL (74-106); Osmolality,Calculated 279 (275-295); Phosphorous 3.5 mg/dL (2.4-5.1); Sodium 139 mMol/L (136-145); eGFR > 60 See Note
[2024-10-24 07:39] VITALS: BP 131/80; PULSE 66; RESP 16; TEMP 36.7; O2SAT 98
[2024-10-24 09:02] VITALS: PULSE 92; RESP 12; RESP 97
--- NOTE | 2024-10-24 10:57 | PD.IMPROG ---
Documentation for date of: 10/24/24 Subjective Subjective Interval history: Evaluated the patient Okay to discharge the patient home to be followed by the primary care physician Exam Vital Signs Temp Pulse Resp BP Pulse Ox O2 Del Method O2 Flow Rate 98.0 F 92 12 131/80 H 98 Room Air 3 10/24/24 07:39 10/24/24 09:02 10/24/24 09:02 10/24/24 07:39 10/24/24 07:39 10/24/24 07:39 10/23/24 17:50 Objective Labs 10/24/24 04:41 10/24/24 04:41 Labs: Laboratory Results - last 24 hr 10/24/24 04:41 WBC 6.4 RBC 2.86 L Hgb 8.4 L Hct 24.9 L MCV 87 MCH 29.4 MCHC 33.7 RDW Std Deviation 55.8 H Plt Count 156 D Neut % (Auto) 64 Lymph % (Auto) 22 [place] % (Auto) 11 Eos % (Auto) 2 Baso % (Auto) 1 Neut # (Auto) 4.1 Lymph # (Auto) 1.4 [place] # (Auto) 0.7 Eos # (Auto) 0.1 Baso # (Auto) 0.1 Immature Gran # (Auto) 0.01 H Absolute Nucleated RBC 0.02 H Immature Gran % 0 Nucleated RBC % 0 Sodium 139 Potassium 4.0 Chloride 107 Carbon Dioxide 27.4 Anion Gap 5 L BUN 14 Creatinine 1.0 Estim Creat Clear Calc 81.7 eGFR > 60 BUN/Creatinine Ratio 14 Glucose 110 H Calculated Osmolality 279 Calcium 8.7 Phosphorus 3.5 Magnesium 2.0 Impressions Impression: # Duodenal ulcer # Gastritis # Esophagitis Continue current management Okay to discharge patient home on a PPI Avoid NSAIDs Assessment & Plan A&P Narrative # Acute posthemorrhagic anemia # Melena Plan Clear liquid diet N.p.o. midnight tonight IV Protonix Serial CBC Consent obtained for fiberoptic esophagogastroduodenoscopy with possible therapeutic intervention possible biopsy under intravenous moderate sedation scheduled for tomorrow Other medical problems include # Coronary artery status post CABG on aspirin and Plavix # Diabetes mellitus type 2 # Essential hypertension # Dizziness secondary to acute blood losses with a negative CT scan of the head Thank you very much for the opportunity to participate in the care of this patient Time Spent With Patient Time: Total time spent is greater than 50% in coordination of care (as documented) at patient's floor/unit and/or counseling patient:
[2024-10-24 11:57] VITALS: BP 115/75; PULSE 73; RESP 16; TEMP 36.8; O2SAT 98
--- NOTE | 2024-10-24 12:08 | ESDS_ITS ---
Planned Discharge Date 10/24/24 DS: Providers Provider Date of admission: 10/22/24 16:21 Primary care physician: Tyrell Morrell Admitting Provider: Shaquille Schumacher DO Attending Provider on Admission: Shaquille Schumacher DO Consults: 10/22/24 15:20 Consult to Gastroenterology Stat Comment: Upper GI bleed Consulting Provider: Vanessa Casas 10/23/24 00:02 Referral Pita Routine Comment: Referral Respiratory Therapy Routine Comment: Attending Provider on DC: Shaquille Schumacher DO Discharging Provider: Bruno Sullivan MD DS: Diagnosis Discharge Diagnosis (1) Acute upper gastrointestinal bleeding: Status: Acute (2) Anemia: Status: Acute Qualifiers: Anemia type: other cause Other causes of anemia: acute posthemorrhagic Qualified Code(s): D62 - Acute posthemorrhagic anemia Problem List Completed Was Problem List Reviewed/Reconciled?: Yes Hospital Course Hospital Course Hospital course: Hospital Course: Mr Dominguez is a 53-year-old male with history of CAD s/p CABG in May 2023 on aspirin/Plavix, HTN, NIDDM, HLD who was admitted on 10/22/2024 for acute blood loss anemia secondary to GI bleed, with patient endorsing melena and hematochezia. He was started on IV Protonix and clear liquid diet. GI was consulted, with patient underwent EGD on 10/23/2024. 3 non bleeding duodenal ulcers noted. As per recommendations, patient started on sucralfate, maalox and will continue protonix. Problems on this admission: #Acute blood loss anemia #GI bleed, upper versus lower #Hematochezia #Melena #Presyncope #Diarrhea, improved #Non-anion gap metabolic acidosis, resolved #Pseudohyponatremia, resolved #NIDDM #CAD s/p CABG (May 2023) #HTN #Hyperlipidemia Procedures: None Discharge instructions: - Follow up with PCP within 1 week from discharge - Follow up with GI within 1 week from discharge - Take Pantoprazole 40mg twice a day for 6 weeks - Take Sucralfate 1g 4 times a day 20-30 minutes before meals - Maalox ordered, take daily per GI recommendations - Continue all other home medications - HOLD Plavix until follow up with GI - Return to ED if symptoms worsen We are grateful to be able to participate in Mr Dominguez's care. We wish him the best. - Bruno Sullivan MD Status at Discharge Cognitive/behavioral status at discharge: Stable and returned to baseline Time Spent with Patient Time attestation: Total time spent providing and/or coordinating discharge services: more than 50% Exam Vital Signs Temp Pulse Resp BP Pulse Ox O2 Del Method O2 Flow Rate 98.2 F 73 16 115/75 98 Room Air 3 10/24/24 11:57 10/24/24 11:57 10/24/24 11:57 10/24/24 11:57 10/24/24 11:57 10/24/24 11:57 10/23/24 17:50 Discharge Plan Plan Patient Disposition: HOME (Self Care) Disposition Comment: Stable Patient condition on transfer: Stable Care Plan Goals: - Follow up with PCP within 1 week from discharge - Follow up with GI within 1 week from discharge - Take Pantoprazole 40mg twice a day for 6 weeks - Take Sucralfate 1g 4 times a day 20-30 minutes before meals - Maalox ordered, take daily per GI recommendations - Continue all other home medications - HOLD Plavix until follow up with GI - Return to ED if symptoms worsen Prescriptions/Referrals Prescriptions/Med Rec: New pantoprazole 40 mg tablet,delayed release (DR/EC) 40 mg PO BID 42 Days Qty: 84 0RF sucralfate 1 gram tablet 1 g PO QID 30 Days Qty: 120 0RF Rx Instructions: BEFORE MEALS alum-mag hydroxide-simeth [Antacid] 200-200-20 mg/5 mL suspension 5 ml PO Q4H 30 Days Qty: 3000 0RF Continued Synjardy XR 12.5-1,000 mg tablet, IR - ER, biphasic 24hr 1 tab PO DAILY Patient Comments: take 1 tablet by mouth every morning carvedilol 6.25 mg tablet 6.25 mg PO DAILY atorvastatin 40 mg tablet 40 mg PO HS Patient Comments: take 1 tablet by mouth once daily Held clopidogrel 75 mg tablet 75 mg PO DAILY Hold Instructions: Resume on 10/31/24. HOLD until follow up with PCP , GI and Cardio Discontinued aspirin 81 mg tablet,delayed release (DR/EC) 81 mg PO HS Patient Comments: take 1 tablet by mouth once daily Referrals: Tyrell Camacho [Primary Care Provider] - Patient/Caregiver Discharge Instructions Meds to Beds: Yes Discharge Activity: resume usual activities Education Materials: Bleeding Gastrointestinal, Upper GI Endoscopy Print Language: Lithuanian Stand Alone Forms: Kathy Award Info., Patient Portal Info Letter Discharge Order Discharge Orders: Discharge (Routine); Ordered 10/24/24 Ordered By: Bruno Sullivan Quality Discharge Quality Measures VTE prophylaxis MD Attestestation MD Attestation I have discussed and was present for the essential components of the discharge history, physical examination, diagnosis, and discharge treatment plan with the resident. I agree with the patient's discharge care as documented by the resident and amended herein by me. Gabriele Schumacher DO. The patient understood all discharge instructions, all questions were answered satisfactorily. The patient was instructed to return to the Emergency Department is symptoms worsened or persisted. Patient was stable, afebrile and tolerating p.o. intake at time of discharge. Although this document has been carefully reviewed, there may still be some phonetic and other typographical errors. These errors are purely grammatical d ue to imperfections in the software program and should not be construed in any way to compromise the substance of the patient's medical care during this visit.
[2024-10-24 15:38] VITALS: BP 122/70; PULSE 75; RESP 17; TEMP 37.2; O2SAT 98
--- NOTE | 2024-10-24 17:16 | PC.NURSE ---
I called Dr. Sullivan when she put the discharge orders in and she said the pt will stay until about 1800 to continue with the protonix drip per Dr. Casas
== END 2024-10-24 18:25 | disposition home or self-care (01) | DRG 243 ==
LOC: SERX 15:31 → SERHOLD 16:43 → S3NX 21:10
PROVIDERS: Nurse Practitioner Primary Care; Specialist; Admitting Provider Student in an Organized Health Care Education/Training Program; Emergency Provider Emergency Medicine; PCP Physician Assistant; Visit Provider Student in an Organized Health Care Education/Training Program
PROC: 0DB68ZX Excision of Stomach, Via Natural or Artificial Opening Endoscopic, Diagnostic (ICD-10-PCS; CPT 43239; principal; 2024-10-23 18:00)
DX: K20.91 Esophagitis, unspecified with bleeding (principal); K29.71 Gastritis, unspecified, with bleeding; K26.4 Chronic or unspecified duodenal ulcer with hemorrhage; K31.89 Other diseases of stomach and duodenum; D62 Acute posthemorrhagic anemia; E87.20 Acidosis, unspecified; I10 Essential (primary) hypertension; E11.9 Type 2 diabetes mellitus without complications; I25.10 Atherosclerotic heart disease of native coronary artery without angina pectoris; E78.5 Hyperlipidemia, unspecified; I25.2 Old myocardial infarction; Z95.1 Presence of aortocoronary bypass graft; Z79.84 Long term (current) use of oral hypoglycemic drugs; Z79.899 Other long term (current) drug therapy
CPT/HCPCS: 36415; 36430; 70450; 71045; 80048; 80053; 80061; 83036; 83690; 83735; 83880; 84100; 84443; 84484; 85025; 85610; 86850; 86900; 86901; 86923; 93005; 94762; 96374; 99285; A4217; A4649; J1200; J1815; J2250; J2470; J3010; J3490; P9016; A9270